=== PATIENT | female | born 1955 | race Caucasian/White ===

== ENCOUNTER → 2023-06-04 | Outpatient (CLI) | payer MEDICARE ==
[2023-06-04 09:50] LABS: African American GFR (CKD) 81 (>60 ml/min/1.73 sqM); Blood Urea Nitrogen 18 mg/dL (7-17); Non-African American GFR(CKD) 71 (>60 ml/min/1.73 sqM)
--- NOTE | 2023-06-04 11:13 | CT ---
EXAMINATION TYPE: CT soft tissue neck w con CT DLP: 706 mGycm, Automated exposure control for dose reduction was used. DATE OF EXAM: 06/04/2023 10:55 AM COMPARISON: Barium swallow same day. 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 Axial sections with coronal and sagittal reformats were obtained. Contrast used:100 ml mL of Isovue 300 with IV Contrast, Oral contrast used: none. FINDINGS: Brain: Visualized portions are grossly unremarkable. Orbits: Unremarkable Sinuses: Grossly unremarkable. Spaces of the neck: Clear and symmetric. No evidence for mass. There is postsurgical changes to the t hyroid bed compatible with history is reported history. Musculoskeletal: No acute osseous pathology. Degenerative disc disease changes of the visualized spin e are present. Lymph nodes: Multiple nonenlarged lymph nodes are seen along both anterior chains of the neck. No g reater than 1.0 cm short axis lymph nodes. Vascular structures: Visualized major arteries are patent without evidence of aneurysm. Thoracic Inlet/airway: Airway is patent. The lung apices are clear. Soft tissues/Thyroid: Thyroid and remainder of the soft tissues are unremarkable. Other: none. IMPRESSION Postsurgical changes without evidence for lymphadenopathy or mass.
--- NOTE | 2023-06-04 11:38 | FL ---
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 All patient questions were ans wered prior to start of procedure. Multiple spot fluoroscopic images of the esophagus were obtained a fter the oral ingestion of effervescent crystals and liquid barium as the contrast agent. Fluoroscopic time: 28 seconds Fluoroscopic images: 0 Radiographs taken: 67 DAP: 1364.94 mGym2 FINDINGS: The esophagus demonstrates normal primary and secondary peristalsis. The esophageal mucosa is smooth without evidence of focal stricture, ulceration, or abnormal outpouching. No gastroesophageal reflu x disease was identified. Cricopharyngeal bar is noted. Large osteophytes noted anterior to C4-C5 imp ress upon the proximal esophagus. Surgical clips are demonstrated. IMPRESSION: 1. Normal esophagram. 2. Cricopharyngeal bar.
== END | disposition home or self-care (01) ==
LOC: RADCTMAIN 09:01
PROVIDERS: ATTEND Otolaryngology
DX: D13.9 Benign neoplasm of ill-defined sites within the digestive system (principal); R13.10 Dysphagia, unspecified; E89.0 Postprocedural hypothyroidism; Z85.850 Personal history of malignant neoplasm of thyroid
CPT/HCPCS: 82565; 84520; 74220; 70491; 36415; Q9967

== ENCOUNTER → 2024-12-22 | Outpatient (CLI) | payer MEDICARE ==
--- NOTE | 2024-12-22 15:46 | MM ---
Reason for Exam: Screening (asymptomatic). Last mammogram was performed 1 year(s) and 8 month(s) ago. Patient History: Menarche at age 11. Patient has no children. Postmenopausal. Patient used Hormonal Contraceptives for 5 years. Patient used Estrogen and Progesterone for 10 years. 2018, Bilateral Implant Removal. 1969, Bilateral Implants. Maternal aunt had breast cancer at or over age 50. Risk Values: Swathi 5 year model risk: 1.9%. NCI Lifetime model risk: 5.4%. Prior Study Comparison: 06/17/2018 Bilateral Screening Mammogram, [place]. 09/26/2020 Bilateral Screening Mammogram, [place]. 05/04/2023 Bilateral MG 3D screening mammo w/cad, [facility]. Tissue Density: There are scattered areas of fibroglandular density. Findings: Analyzed By CAD. Bilateral areas of asymmetric density are unchanged. Low axillary tail lymph node redemonstrated on the right. There is no suspicious group of microcalcifications or new suspicious mass in either breast. Overall Assessment: Benign, BI-RAD 2 Management: Screening Mammogram of both breasts in 1 year. Patient should continue monthly self-breast exams. A clinical breast exam by your physician is recommended on an annual basis. This exam should not preclude additional follow-up of suspicious palpable abnormalities. Note on Swathi scores and lifetime risk: 1. A Swathi score greater than 3% is considered moderate risk. If this is the case, consider specialist referral to assess eligibility for a risk reducing agent. 2. If overall lifetime risk for the development of breast cancer is 20% or higher, the patient may qualify for future screening with alternating mammogram and breast MRI. [facility], , 12/22/2024 3:43 PM. Electronically signed and approved by: Tiffany Reyna M.D. Radiologist
== END | disposition home or self-care (01) ==
LOC: RADMAMWWP 13:42
PROVIDERS: ATTEND Family Medicine
DX: Z12.31 Encounter for screening mammogram for malignant neoplasm of breast (principal); Z78.0 Asymptomatic menopausal state; Z80.3 Family history of malignant neoplasm of breast; R92.323 Mammographic fibroglandular density, bilateral breasts
CPT/HCPCS: 77063; 77067

== ENCOUNTER 2025-01-13 06:24 | Emergency (ER) | payer MEDICARE ==
--- NOTE | 2025-01-13 07:04 | ED ---
Chest Pain HPI - General Chief Complaint: Chest Pain Stated Complaint: tooth pain/neck pain Time Seen by Provider: 01/13/25 07:03 Source: patient Mode of arrival: ambulatory Limitations: no limitations - History of Present Illness Initial Comments: 69-year-old female with a past medical history significant of hypertension and thyroid disorder presenting to the ER for evaluation of left-sided neck/chest pain. Patient states she was awoken around 4:30 AM with a throbbing aching left-sided neck discomfort. She states pain did radiate into her chest. Patient did take 2 ibuprofen and baclofen prior to arrival. She states pain did subside and is currently a 5 out of 10. Patient currently is complaining of a throbbing left-sided chest discomfort. No radiation of this pain. Pain is made worse with laying flat. Patient denies any shortness of breath, nausea, vomiting, dizziness or lightheadedness. Denies history of SD or cardiac stent placement. Patient does report on Thursday afternoon she had dental work completed on her right lower jaw as she is currently being fitted for Invisalign retainer. She is unsure if this is musculoskeletal pain or cardiac in nature. Denies any fevers, chills or teeth pain. Patient denies any other complaints at this time - Related Data Home Medications Medication Instructions Recorded Confirmed Baclofen [Lioresal] 20 mg PO HS PRN 01/13/25 01/13/25 LORazepam [Ativan] 0.5 mg PO DAILY PRN 01/13/25 01/13/25 Levothyroxine Sodium [Synthroid] 175 mcg PO DAILY 01/13/25 01/13/25 amLODIPine 10 mg PO HS 01/13/25 01/13/25 hydroCHLOROthiazide [Hydrodiuril] 25 mg PO HS 01/13/25 01/13/25 Previous Rx's Medication Instructions Recorded Amoxic-Pot Clav 875-125Mg 1 tab PO Q12HR 7 Days #14 tab 01/13/25 [Augmentin 875-125] Allergies Allergy/AdvReac Type Severity Reaction Status Date / Time No Known Allergies Allergy Verified 01/13/25 09:17 Review of Systems ROS Statement: Those systems with pertinent positive or pertinent negative responses have been documented in the HPI. ROS Other: All systems not noted in ROS Statement are negative. EKG Findings - EKG Comments: EKG Findings:: EKG taken at 6: 39 showing a sinus rhythm. No ST segment elevations or depressions. No T wave inversions. Ventricular rate 66, W[place] interval 149, QRS duration 106, QT/QTc 400/413 Past Medical History Past Medical History: Hypertension, Thyroid Disorder History of Any Multi-Drug Resistant Organisms: None Reported Past Surgical History: Tubal Ligation Additional Past Surgical History / Comment(s): Parathyroidectomy Past Psychological History: No Psychological Hx Reported Smoking Status: Never smoker Past Alcohol Use History: None Reported Past Drug Use History: None Reported General Exam Limitations: no limitations General appearance: alert, in no apparent distress ENT exam: Present: normal exam, normal oropharynx (impacted left lower molar. no surrounding erythema or drainable abscess noted.), mucous membranes moist Neck exam: Present: normal inspection, tenderness (Left angle of mandible). Absent: meningismus, lymphadenopathy Respiratory exam: Present: normal lung sounds bilaterally. Absent: respiratory distress, wheezes, rales, rhonchi, stridor Cardiovascular Exam: Present: regular rate, normal rhythm, normal heart sounds. Absent: systolic murmur, diastolic murmur, rubs, gallop, clicks Neurological exam: Present: alert, oriented X3, CN II-XII intact Skin exam: Present: warm, dry, intact, normal color. Absent: rash Course Vital Signs 01/13/25 01/13/25 01/13/25 06:28 07:20 12:57 Temperature 97.7 F 98.9 F Pulse Rate 67 66 78 Respiratory 18 18 16 Rate Blood Pressure 143/77 127/71 O2 Sat by Pulse 98 95 96 Oximetry - Reevaluation(s) Reevaluation #1: 01/13/25 11:36 HEART score 3. Chest Pain MDM - MDM Was pt. sent in by a medical professional or institution (, PA, LVN, urgent care, hospital, or half-way...) When possible be specific @ -No Did you speak to anyone other than the patient for history (EMS, parent, family, police, friend...)? What history was obtained from this source @ -No Did you review nursing and triage notes (agree or disagree)? Why? @ -I reviewed and agree with nursing and triage notes Were old charts reviewed (outside hosp., previous admission, EMS record, old EKG, old radiological studies, urgent care reports/EKG's, half-way records)? Report findings @ -No old charts were reviewed Differential Diagnosis (chest pain, altered mental status, abdominal pain women, abdominal pain men, vaginal bleeding, weakness, fever, dyspnea, syncope, headache, dizziness, GI bleed, back pain, seizure, CVA, palpatations, mental health, musculoskeletal)? @ -Differential Chest Pain:Stable Angina, Unstable Angina, STEMI, NSTEMI Aortic Dissection, Pneumothorax, Musculoskeletal, Esophageal Spasm GERD, Cholecystitis, Pancreatitis, Zoster, this is not meant to be an all-inclusive list. EKG interpreted by me (3pts min.). @ -As above X-rays interpreted by me (1pt min.). @ -CXR showed cardiomegaly with no acute pulmonary process. CT interpreted by me (1pt min.). @ -None done U/S interpreted by me (1pt. min.). @ -None done What testing was considered but not performed or refused? (CT, X-rays, U/S, labs)? Why? @ -None What meds were considered but not given or refused? Why? @ -None Did you discuss the management of the patient with other professionals (professionals i.e. , PA, LVN, lab, RT, psych nurse, social organization professor, aircraft pilot, teacher, compliance review officer, piano case and bench assembler)? Give summary @ -No Was smoking cessation discussed for >3mins.? @ -No Was critical care preformed (if so, how long)? @ -No Were there social determinants of health that impacted care today? How? (Homelessness, low income, unemployed, alcoholism, drug addiction, transportation, low edu. Level, literacy, decrease access to med. care, alf, rehab)? @ -No Was there de-escalation of care discussed even if they declined (Discuss DNR or withdrawal of care, Hospice)? DNR status @ -No What co-morbidities impacted this encounter? (DM, HTN, Smoking, COPD, CAD, Cancer, CVA, ARF, Chemo, Hep., AIDS, mental health diagnosis, sleep apnea, morbid obesity)? @ -None Was patient admitted / discharged? Hospital course, mention meds given and route, prescriptions, significant lab abnormalities, going to OR and other pert inent info. @ -Discharge. 69-year-old female presented the ER for evaluation of left lower jaw pain. Upon rooming, history and physical exam completed. Vitals within acceptable limits. Patient had no signs of acute distress and nontoxic- appearing. Given patient reporting pain radiating into chest cardiac workup was obtained with undetectable troponin x 2. EKG showing a sinus rhythm no ST segment elevations or depressions. There is a leukocytosis of 15.0 with a left shift possibly concerning of infection given patient's recent dental work patient will be started on Augmentin. Patient given symptomatic treatment in the emergency department with IV fluids, Toradol and aspirin. Upon reevaluation, patient reporting pain only to her left jaw. Heat pack was given. HEART score 3. Pain believed to be stemming from dental work. I advised patient to follow-up closely with dentist. Patient discharged stable condition with follow-up to PCP and dentist. Strict return parameters discussed. Patient discharged in stable condition. Patient verbally expressed understanding agree with care plan. Case discussed with ED attending, Dr. Francisco. Undiagnosed new problem with uncertain prognosis? @ -No Drug Therapy requiring intensive monitoring for toxicity (Heparin, Nitro, Insulin, Cardizem)? @ -No Were any procedures done? @ -No Diagnosis/symptom? @ -Dental pain/atypical chest pain Acute, or Chronic, or Acute on Chronic? @ -Acute Uncomplicated (without systemic symptoms) or Complicated (systemic symptoms)? @ -Uncomplicated Side effects of treatment? @ -No Exacerbation, Progression, or Severe Exacerbation? @ -No Poses a threat to life or bodily function? How? (Chest pain, USA, SD, pneumonia, PE, COPD, DKA, ARF, appy, cholecystitis, CVA, Diverticulitis, Homicidal, Suicidal, threat to staff... and all critical care pts) @ -Low at this time Disposition Clinical Impression: Pain, dental, Atypical chest pain Disposition: HOME SELF-CARE Condition: Stable Additional Instructions: Follow-up closely with dentist. Return to the ER for any new or worsening concerns. You may take [id number] ibuprofen and Tylenol for pain control. Take Augmentin as prescribed. Prescriptions: Amoxic-Pot Clav 875-125Mg [Augmentin 875-125] 1 tab PO Q12HR 7 Days #14 tab Is patient prescribed a controlled substance at d/c from ED?: No Referrals: Nonstaff,Physician [REFERRING] - 1-2 days Mariano Sood DDS [STAFF PHYSICIAN] - 1-2 days Tayla Duong DDS [STAFF PHYSICIAN] - 1-2 days Time of Disposition: 12:30
[2025-01-13 07:54] VITALS: BP 127/71
--- NOTE | 2025-01-13 08:00 | XR ---
EXAMINATION TYPE: XR chest 2V DATE OF EXAM: 01/13/2025 7:55 AM COMPARISON: None TECHNIQUE: XR chest 2V Frontal and lateral views of the chest. CLINICAL INDICATION:Female, 69 years old with history of Chest Pain; FINDINGS: Lungs/Pleura: There is no evidence of pleural effusion, focal consolidation, or pneumothorax. Pulmonary vascularity: Unremarkable. Heart/mediastinum: Cardiomediastinal silhouette is enlarged. Atherosclerotic calcifications are seen in the aorta. Musculoskeletal: Multiple level degenerative disc disease changes seen throughout the spine. IMPRESSION: 1. No acute cardiopulmonary disease/process. 2. Cardiomegaly. [facility], , 01/13/2025 7:57 AM
[2025-01-13] MEDS: SODIUM CHLORIDE 0.9% 1,000 ML IV ONE (08:47)
[2025-01-13] MEDS: ASPIRIN 81 MG PO STA (08:49)
[2025-01-13 08:57] LABS: Basophils % (A) 0 %; Eosinophils # (A) 0.1 k/uL (0-0.7); Eosinophils % (A) 0 %; HCT 41.9 % (34.0-46.0); HGB 13.7 gm/dL (11.4-16.0); Lymphocytes # (A) 1.1 k/uL (1.0-4.8); Lymphocytes % (A) 7 %; MCH 28.7 pg (25.0-35.0); MCHC 32.8 g/dL (31.0-37.0); MCV 87.4 fL (80.0-100.0); Mean Platelet Volume 7.3; Monocytes # (A) 0.6 k/uL (0-1.0); Monocytes % (A) 4 %; Neutrophils # (A) 13.2 k/uL (1.3-7.7); Neutrophils % (A) 88 %; Platelet Count 354 k/uL (150-450); RBC 4.79 m/uL (3.80-5.40); RDW 12.5 % (11.5-15.5)
[2025-01-13 09:11] LABS: ALT 21 U/L (4-34); AST 20 U/L (14-36); African American GFR (CKD) >90 (>60 ml/min/1.73 sqM); Albumin 4.5 g/dL (3.5-5.0); Alkaline Phosphatase 75 U/L (38-126); Anion Gap 8 mmol/L; Blood Urea Nitrogen 23 mg/dL (7-17); Calcium 9.8 mg/dL (8.4-10.2); Carbon Dioxide 31 mmol/L (22-30); Chloride 99 mmol/L (98-107); Glucose 111 mg/dL (74-99); Magnesium 1.9 mg/dL (1.6-2.3); Non-African American GFR(CKD) 83 (>60 ml/min/1.73 sqM); Potassium 3.5 mmol/L (3.5-5.1); Sodium 138 mmol/L (137-145); Total Bilirubin 0.6 mg/dL (0.2-1.3); Total Protein 7.3 g/dL (6.3-8.2)
[2025-01-13 09:14] LABS: INR 0.9 (<1.2); Prothrombin Time 10.3 sec (10.0-12.5)
[2025-01-13 09:26] LABS: Partial Thromboplastin Time 20.9 sec (22.0-30.0)
[2025-01-13 10:27] LABS: T4, Free (Free Thyroxine) 1.78 ng/dL (0.78-2.19)
[2025-01-13] MEDS: KETOROLAC 15 MG/ML 1 ML VIAL IVP STA (12:24)
[2025-01-13 13:00] VITALS: PULSE 78; RESP 16; TEMP 98.9
== END 2025-01-13 13:05 | disposition home or self-care (01) ==
LOC: EC 06:24
DX: R07.89 Other chest pain (principal); K08.89 Other specified disorders of teeth and supporting structures
CPT/HCPCS: 36415; 93005; 84439; 80053; 84443; 83735; 84484; 85025; 85610; 85730; 71046; 99285; 96374; 96361; J1885

== ENCOUNTER → 2025-01-27 | Outpatient (CLI) | payer MEDICARE ==
--- NOTE | 2025-01-27 13:50 | CA ---
Exercise Stress Test Report Name: Emily Mccoy Exam Date: 01/27/2025 10:15 Exam Location: [facility] Stress Ht (in): 68 Wt (lb): 210 BSA: 2.09 Ordering Phys: Lizeth Owens DO Referring Phys: Sarah Recinos PAC Technologist: sage lott Age: 69 Gender: F : 1955 Procedure CPT: Indications: I10 HTN R06.09 DYSPNEA R42 DIZZINESS ICD-10 Codes: Patient History: Vertigo, shortness of breath and hypertension Medications: LEVOTHYROXINE,,,, HYDROCHLOROTHYAZIDE,,,, AMLODIPINE,,, Meds past 24 hrs: Pretest Chest Pain: STRESS TEST Adam Protocol Exercise Duration (min:sec): 02:[address] Depressions (mm): Angina Score: Singh Score: Resting HR (bpm): 64 Peak HR (bpm): 137 Resting BP (mmHg): 135 / 89 Peak BP (mmHg): 148 / 79 MPHR: 149 Target HR: 127 % MPHR: 92 METS: 4.7 Total Dose: Peak Dose: Atropine: Double Product: BP Response: Stress Termination: TARGET HR REACHED/MAX EXERTION Stress Symptoms: DIFFICULTY IN BREATHING,DIZZINESS Stress Summary: ECG ANALYSIS Resting ECG: Stress ECG: CONCLUSIONS Poor exercise tolerance Normal electrocardiogram stress testing Dr. Teofilo Gregory MD (Electronically Signed) Final Date: 27 January 2025 13:49
== END | disposition home or self-care (01) ==
LOC: RADNMMAIN 09:47
PROVIDERS: ATTEND Family Medicine
DX: I10 Essential (primary) hypertension (principal); R06.09 Other forms of dyspnea; R42 Dizziness and giddiness
CPT/HCPCS: 93017